=== PATIENT | male | born 1950 | race Caucasian/White ===

== ENCOUNTER 2019-06-17 17:13 | Emergency (ER) | payer OTHER ==
[~2019-06-17] VITALS: Ht 180.3 cm; Wt 99.8 kg
[~2019-06-17 17:13] MED LIST: AZIT250 PO; PRED20 PO
[2019-06-17] MEDS ORDERED: ALBU3IS (19:34)
[2019-06-17] MEDS ORDERED: Verapamil ER100 MG PO (19:35)
[2019-06-17] MEDS ORDERED: BENZ100A PO (20:11)
[2019-06-17] MEDS ORDERED: Guaifenesin-Co118 ML PO (20:11)
== END 2019-06-17 20:21 | disposition home or self-care (01) ==
LOC: ER 17:13
DX: J45.901 Unspecified asthma with (acute) exacerbation (principal); Z79.899 Other long term (current) drug therapy
CPT/HCPCS: 71045; 94644; 99283-25

== ENCOUNTER → 2019-06-22 | Outpatient (CLI) | payer OTHER ==
[~2019-06-22] MED LIST changes: +ALBU3IS; +BENZ100A PO; +Guaifenesin-Co118 ML PO; +Verapamil ER100 MG PO
== END | disposition home or self-care (01) ==
LOC: LAB 13:02 → LAB SHORT 13:02
DX: J06.9 Acute upper respiratory infection, unspecified (principal)
CPT/HCPCS: 87070; 87205

== ENCOUNTER 2019-11-19 07:51 | Day surgery (SDC) | payer OTHER ==
[~2019-11-19] VITALS: Ht 180.3 cm; Wt 103.2 kg
[~2019-11-19 07:51] MED LIST changes: +AIMOVIG AU140 MG/1 M SC; +ALBU2.5V5 INH; +ATOR80 PO; +Aspirin EC81 MG PO; +Benicar40 MG PO; +LATA.005SO BOTHEYES; +MONT10T PO; +VERAPAMIL SR240 M1 PO; +Ventolin/Prove6.7 GM INH; +Ventolin5 MG/1 ML INH
--- NOTE | 2019-11-19 11:28 | NUR ---
11/19/19 1128 Florence Cortes PT UNABLE TO FILL RX RIGHT AWAY, MEDICATED WITH ORAL PAIN MEDS ORDERED TO HAVE PAIN MEDICATION ON BOARD BEFORE HE CAN FILL RX.
== END 2019-11-19 11:35 | disposition home or self-care (01) ==
LOC: ORSCSDS 07:51
PROVIDERS: Podiatrist Foot & Ankle Surgery
PROC: 0SGN04Z Fusion of Left Metatarsal-Phalangeal Joint with Internal Fixation Device, Open Approach (ICD-10-PCS; principal; 2019-11-19 09:15)
PROC: 01BG0ZZ Excision of Tibial Nerve, Open Approach (ICD-10-PCS; principal; 2019-11-19 09:15)
DX: M20.22 Hallux rigidus, left foot (principal); G57.62 Lesion of plantar nerve, left lower limb; I10 Essential (primary) hypertension; E78.5 Hyperlipidemia, unspecified; Z87.891 Personal history of nicotine dependence; Z79.899 Other long term (current) drug therapy; Z79.82 Long term (current) use of aspirin
CPT/HCPCS: 88304; C1713; C1769; J0171; J0690; J1100; J2250; J2405; J2704; J3010; J7120; U0003

== ENCOUNTER 2020-04-27 10:32 | Day surgery (SDC) | payer OTHER ==
[~2020-04-27] VITALS: Ht 180.3 cm; Wt 102.8 kg
--- NOTE | 2020-04-27 12:29 | NUR ---
04/27/[address] IN PREOP & PERFORMED RIGHT SHOULDER BLOCK FOR PT. PT. TOLERATED WELL.
--- NOTE | 2020-04-27 13:58 | NUR ---
04/27/20 1358 Grace Blackmon S O2SATS DOWN TO 89%, FACE MASK ON AT 15L, SATS UP TO 99%. 1357 FACE TENT DISCONTINUED. PT.DENIES PAIN OR NAUSEA. PT.ABLE TO FEEL TOUCH TO ALL FINGERS ON HIS RIGHT HAND. PT. VERBALIZES RIGHT THUMB A LITTLE NUMB.
--- NOTE | 2020-04-27 14:28 | NUR ---
04/27/20 1428 Grace Blackmon PT. ABLE TO WIGGLE FINGERS ON RIGHT HAND. PT. ABLE TO FEEL TOUCH TO ALL FINGERS ON RIGHT HAND. PT. DRINKING JUICE & EATING SHORTBREAD COOKIES. DENIES PAIN OR NAUSEA. CALL LIGHT IS WITHIN REACH.
== END 2020-04-27 15:10 | disposition home or self-care (01) ==
LOC: ORSCSDS 10:32
PROVIDERS: Orthopaedic Surgery
PROC: 0LQ14ZZ Repair Right Shoulder Tendon, Percutaneous Endoscopic Approach (ICD-10-PCS; principal; 2020-04-27 12:15)
PROC: 0PB94ZZ Excision of Right Clavicle, Percutaneous Endoscopic Approach (ICD-10-PCS; principal; 2020-04-27 12:15)
PROC: 0LS34ZZ Reposition Right Upper Arm Tendon, Percutaneous Endoscopic Approach (ICD-10-PCS; principal; 2020-04-27 12:15)
PROC: 0RNJ4ZZ Release Right Shoulder Joint, Percutaneous Endoscopic Approach (ICD-10-PCS; principal; 2020-04-27 12:15)
DX: M75.111 Incomplete rotator cuff tear or rupture of right shoulder, not specified as traumatic (principal); M75.21 Bicipital tendinitis, right shoulder; M75.41 Impingement syndrome of right shoulder; M19.011 Primary osteoarthritis, right shoulder; I10 Essential (primary) hypertension; J44.9 Chronic obstructive pulmonary disease, unspecified; E78.5 Hyperlipidemia, unspecified; Z79.82 Long term (current) use of aspirin; Z79.899 Other long term (current) drug therapy
CPT/HCPCS: C1713; J0171; J0690; J1100; J2001; J2250; J2370; J2405; J2704; J3010; J7120

== ENCOUNTER → 2020-06-02 | Outpatient (CLI) | payer OTHER ==
[2020-06-02 13:42] LABS: Stool Occult Blood Guaiac 1 Pos (Neg)
== END | disposition home or self-care (01) ==
LOC: LAB SHORT 10:00 → LAB 10:00
PROVIDERS: Family Medicine
DX: Z12.11 Encounter for screening for malignant neoplasm of colon (principal)
CPT/HCPCS: 82270

== ENCOUNTER → 2020-09-11 | Outpatient (CLI) | payer OTHER ==
[2020-09-11 13:46] LABS: Stool Occult Bld Immuno 1 Positive (NEGATIVE)
== END | disposition home or self-care (01) ==
LOC: LAB 07:00 → LAB SHORT 07:00
PROVIDERS: Family Medicine
DX: Z12.11 Encounter for screening for malignant neoplasm of colon (principal)
CPT/HCPCS: G0328

== ENCOUNTER 2021-02-20 09:40 | Day surgery (SDC) | payer OTHER ==
[~2021-02-20] VITALS: Ht 160 cm; Wt 102.2 kg
[~2021-02-20 09:40] MED LIST changes: +OMEP20ER PO
--- NOTE | 2021-02-20 10:33 | NUR ---
Ambulatory in Day Surgery History, Chart, Medications and Allergies reviewed before start of procedure.Patient confirms NPO status and agrees with scheduled surgery. Patient states colon prep results clear.Lungs clear T/O to Auscultation.
--- NOTE | 2021-02-20 11:36 | NUR ---
02/20/21 1135 Azeem Damon History, Chart, Medications and Allergies reviewed before start of procedure. Patient confirms NPO status and agrees with scheduled surgery. 3-LEAD EKG REVIEWED WITH PHYSICIAN PRIOR TO START OF PROCEDURE. MONITOR INTACT WITH CONTINUOUS PULSE OXIMETRY AND INTERMITTENT BP. PATIENT DETERMINED TO BE ASA APPROPRIATE FOR PROPOFOL SEDATION PRIOR TO START OF PROCEDURE BY DR. YEE.
--- NOTE | 2021-02-20 13:01 | NUR ---
Patient up to Ambulate independently. Gait steady. Discharge instructions reviewed with patient. Patient verbalizes understanding. Copy given to patient to take home. Discharged via wheelchair to private car for ride home.
== END 2021-02-20 22:56 | disposition home or self-care (01) ==
LOC: ORSCMMR 09:40 → ORD 11:15 → ORSCMMR 22:56
PROVIDERS: Student in an Organized Health Care Education/Training Program
PROC: 0DBH8ZX Excision of Cecum, Via Natural or Artificial Opening Endoscopic, Diagnostic (ICD-10-PCS; principal; 2021-02-20 11:15)
PROC: 0DBN8ZX Excision of Sigmoid Colon, Via Natural or Artificial Opening Endoscopic, Diagnostic (ICD-10-PCS; principal; 2021-02-20 11:15)
PROC: 0DBL8ZX Excision of Transverse Colon, Via Natural or Artificial Opening Endoscopic, Diagnostic (ICD-10-PCS; principal; 2021-02-20 11:15)
PROC: 0DBK8ZX Excision of Ascending Colon, Via Natural or Artificial Opening Endoscopic, Diagnostic (ICD-10-PCS; principal; 2021-02-20 11:15)
PROC: 0DB48ZX Excision of Esophagogastric Junction, Via Natural or Artificial Opening Endoscopic, Diagnostic (ICD-10-PCS; principal; 2021-02-20 11:15)
DX: K22.70 Barrett's esophagus without dysplasia (principal); K92.1 Melena; D12.0 Benign neoplasm of cecum; D12.2 Benign neoplasm of ascending colon; D12.3 Benign neoplasm of transverse colon; D12.5 Benign neoplasm of sigmoid colon; K57.30 Diverticulosis of large intestine without perforation or abscess without bleeding; K64.4 Residual hemorrhoidal skin tags; I10 Essential (primary) hypertension; E78.5 Hyperlipidemia, unspecified; Z79.899 Other long term (current) drug therapy
CPT/HCPCS: 88305; J2704; J7120

== ENCOUNTER → 2021-02-23 | Outpatient (CLI) | payer OTHER | END | disposition home or self-care (01) | LOC: LAB SHORT 12:30 | DX: J03.90 Acute tonsillitis, unspecified (principal) | CPT/HCPCS: 87081 ==

== ENCOUNTER 2022-04-03 07:06 | Day surgery (SDC) | payer OTHER ==
[~2022-04-03] VITALS: Ht 180.3 cm; Wt 102.0 kg
[2022-04-03] MEDS ORDERED: GEMF600 PO (07:43)
[2022-04-03] MEDS ORDERED: FISH OIL 1,2001 EAC7 PO (07:43)
[2022-04-03] MEDS ORDERED: ZYRTEC10 M2 PO (07:43)
[2022-04-03] MEDS ORDERED: MULVITA PO (07:44)
--- NOTE | 2022-04-03 07:59 | NUR ---
04/03/22 0759 Gale Vivas IN AT 0742 OUSMANE IN AT 0746
--- NOTE | 2022-04-03 08:40 | NUR ---
04/03/22 0840 Michelle Samayoa NEGATIVE SKIN TEST FOR IODINE NOTED.
== END 2022-04-03 09:16 | disposition home or self-care (01) ==
LOC: ORSCSDS 07:06
PROVIDERS: Ophthalmology
PROC: 08DJ3ZZ Extraction of Right Lens, Percutaneous Approach (ICD-10-PCS; principal; 2022-04-03 08:30)
DX: H25.11 Age-related nuclear cataract, right eye (principal); H40.1132 Primary open-angle glaucoma, bilateral, moderate stage; I10 Essential (primary) hypertension; K21.9 Gastro-esophageal reflux disease without esophagitis; J44.9 Chronic obstructive pulmonary disease, unspecified; E66.9 Obesity, unspecified; Z68.31 Body mass index [BMI] 31.0-31.9, adult; Z79.899 Other long term (current) drug therapy
CPT/HCPCS: J2001; J2250; J3010; J3301; J7040; V2632

== ENCOUNTER → 2022-04-24 | Outpatient (CLI) | payer OTHER ==
[~2022-04-24] MED LIST changes: +FISH OIL 1,2001 EAC7 PO; +GEMF600 PO; +MULVITA PO; +ZYRTEC10 M2 PO
== END ==
LOC: PLD 08:09 → LAB SHORT 08:09
DX: D49.2 Neoplasm of unspecified behavior of bone, soft tissue, and skin (principal)
CPT/HCPCS: 88305

== ENCOUNTER 2022-07-05 10:36 | Emergency (ER) | payer OTHER ==
[~2022-07-05] VITALS: Ht 236.2 cm; Wt 101.2 kg
[2022-07-05 11:19] LABS: BASOPHILS ABSOLUTE AUTO 0.06 K/mm3 (0.00-0.23); BASOPHILS PERCENT AUTO 1 % (0-2); EOSINOPHILS ABSOLUTE AUTO 0.29 K/mm3 (0.00-0.68); EOSINOPHILS PERCENT AUTO 5 % (0-6); Hemoglobin 13.4 g/dL (13.5-17.5); IMMATURE GRAN ABSOLUTE AUTO 0.01 K/mm3 (0.00-0.10); IMMATURE GRAN PERCENT AUTO 0 % (0-1); LYMPHOCYTES PERCENT AUTO 31 % (21-46); MONOCYTES ABSOLUTE AUTO 0.58 K/mm3 (0.16-1.47); MONOCYTES PERCENT AUTO 11 % (4-13); Mean Corpuscular HGB 30.1 pg (26.0-34.0); Mean Corpuscular HGB Conc 33.5 g/dL (31.5-36.5); Mean Corpuscular Volume 90 fL (80-100); Mean Platelet Volume 9.4 fL (9.1-12.4); NEUTROPHILS ABSOLUTE AUTO 2.87 K/mm3 (1.96-9.15); NEUTROPHILS PERCENT AUTO 52 % (41-73); Platelet Count 239 K/mm3 (150-400); RDW Coefficient Variation 13.6 % (11.7-14.2); RDW Standard Deviation 44.6 fL (35.1-46.3); Red Blood Cell Count 4.45 M/mm3 (4.30-5.90); White Blood Cell Count 5.51 K/mm3 (4.00-11.30)
[2022-07-05 11:41] LABS: Albumin, Blood 3.4 g/dL (3.4-5.0); Albumin/Globulin Ratio 0.9 (0.8-1.8); Bilirubin, Total 0.3 mg/dL (0.1-1.0); Bun/Creatinine Ratio 14.3 (12.0-20.0); Calcium, Blood 8.4 mg/dL (8.5-10.1); Creatinine, Blood 1.05 mg/dL (0.60-1.20); Globulin, Blood 3.7 g/dL (2.2-4.0); Total Protein, Blood 7.1 g/dL (6.4-8.2)
[2022-07-05 12:45] VITALS: BP 139/86
== END 2022-07-05 13:30 | disposition home or self-care (01) ==
LOC: ER 10:36
PROVIDERS: Physician Assistant
DX: I10 Essential (primary) hypertension (principal); R51.9 Headache, unspecified; J44.9 Chronic obstructive pulmonary disease, unspecified; Z88.0 Allergy status to penicillin; Z88.2 Allergy status to sulfonamides; Z91.041 Radiographic dye allergy status
CPT/HCPCS: 36415; 80053; 85025; 96374; 99283-25; J1885; J7030

== ENCOUNTER 2023-03-22 19:20 | Emergency (ER) | payer OTHER ==
[~2023-03-22] VITALS: Ht 180.3 cm; Wt 101.2 kg
[2023-03-22 21:00] VITALS: BP 166/96
== END 2023-03-22 21:10 | disposition home or self-care (01) ==
LOC: ER 19:20
DX: J20.9 Acute bronchitis, unspecified (principal); I10 Essential (primary) hypertension; Z88.2 Allergy status to sulfonamides; Z88.0 Allergy status to penicillin; Z91.041 Radiographic dye allergy status; Z79.899 Other long term (current) drug therapy
CPT/HCPCS: 71046; 99283-25

== ENCOUNTER 2024-10-20 13:46 | Emergency (ER) | payer OTHER ==
[~2024-10-20] VITALS: Ht 180.3 cm; Wt 98.9 kg
[~2024-10-20 13:46] MED LIST changes: +BETIMOL5 M1; +CARV3.125; +FORMOTEROL20 MCG/2 M; +ZYRTEC10 M2
[2024-10-20] MEDS ORDERED: ADALAT CC PO (14:28)
[2024-10-20 15:22] LABS: BASOPHILS ABSOLUTE AUTO 0.03 K/mm3 (0.00-0.23); BASOPHILS PERCENT AUTO 1 % (0-2); EOSINOPHILS ABSOLUTE AUTO 0.16 K/mm3 (0.00-0.68); EOSINOPHILS PERCENT AUTO 3 % (0-6); Hematocrit 39.0 % (37.0-53.0); Hemoglobin 13.4 g/dL (13.5-17.5); IMMATURE GRAN ABSOLUTE AUTO 0.01 K/mm3 (0.00-0.10); IMMATURE GRAN PERCENT AUTO 0 % (0-1); LYMPHOCYTES ABSOLUTE AUTO 1.31 K/mm3 (0.84-5.20); LYMPHOCYTES PERCENT AUTO 28 % (21-46); MONOCYTES ABSOLUTE AUTO 0.36 K/mm3 (0.16-1.47); MONOCYTES PERCENT AUTO 8 % (4-13); Mean Corpuscular HGB Conc 34.4 g/dL (31.5-36.5); Mean Corpuscular Volume 91 fL (80-100); NEUTROPHILS ABSOLUTE AUTO 2.85 K/mm3 (1.96-9.15); NEUTROPHILS PERCENT AUTO 60 % (41-73); NRBC ABSOLUTE 0.00 K/mm3 (0.00-0.02); NRBC Auto 0.0 /100 WBC (0.0-0.2); Platelet Count 226 K/mm3 (150-400); RDW Coefficient Variation 13.4 % (11.7-14.2); RDW Standard Deviation 44.9 fL (35.1-46.3)
[2024-10-20 15:40] LABS: Alanine Aminotransfer (ALT/SGP 22.0 U/L (12-78); Albumin, Blood 3.4 g/dL (3.4-5.0); Albumin/Globulin Ratio 1.0 (0.8-1.8); Anion Gap 8.0 mmol/L (3-11); Aspartate Aminotrans (AST/SGOT 14.0 U/L (12-37); Bilirubin, Total 0.5 mg/dL (0.1-1.0); Blood Urea Nitrogen 16.0 mg/dL (8-24); CO2, Blood 26.0 mmol/L (21-32); Calcium, Blood 8.4 mg/dL (8.5-10.1); Chloride, Blood 105.0 mmol/L (98-108); Creatinine, Blood 1.05 mg/dL (0.60-1.20); Globulin, Blood 3.5 g/dL (2.2-4.0); Glucose, Blood 118.0 mg/dL (70-99); Magnesium, Blood 2.3 mg/dL (1.6-2.4); Potassium, Blood 3.6 mmol/L (3.5-5.5); Sodium, Blood 135.0 mmol/L (136-145); Total Protein, Blood 6.9 g/dL (6.4-8.2)
[2024-10-20 16:00] VITALS: BP 144/84
== END 2024-10-20 16:11 | disposition home or self-care (01) ==
LOC: ER 13:46
PROVIDERS: Student in an Organized Health Care Education/Training Program
DX: R06.02 Shortness of breath (principal); J44.89 Other specified chronic obstructive pulmonary disease; I10 Essential (primary) hypertension; Z88.2 Allergy status to sulfonamides; Z88.0 Allergy status to penicillin; Z88.1 Allergy status to other antibiotic agents; Z91.041 Radiographic dye allergy status; Z79.899 Other long term (current) drug therapy
CPT/HCPCS: 71045; 80053; 83735; 85025; 93005; 93010; 99285-25